=== PATIENT | female | born 1975 | race Hispanic/Latino ===

== ENCOUNTER 2018-11-19 20:33 | Emergency (ER) | payer MEDICARE ==
[~2018-11-19 20:33] MED LIST: ALPR2TAB7 PO; BUDE10.2 IH; DICL2100G TP; DIVA250T4 PO; DULO20 PO; GABA-529 PO; HYDR-3971 PO; ONDA4TAB4 PO; QUET300T2 PO; TIZA4TAB6 PO; ZOLP5TAB2 PO
[2018-11-19 21:35] LABS: BASOPHILS % (AUTO) 0.1 % (0.0-5.0); EOSINOPHILS % (AUTO) 0.2 % (0.0-8.0); HEMATOCRIT 40.2 % (36-48); LYMPHOCYTES % (AUTO) 7.5 % (21.0-51.0); MEAN CORPUSCULAR HEMOGLOBIN 30.3 pg (27.0-33.0); MEAN CORPUSCULAR HGB CONC 34.3 g/dL (32.0-36.0); MEAN CORPUSCULAR VOLUME 88.2 fL (79-99); MONOCYTES % (AUTO) 4.2 % (3.0-13.0); PLATELET COUNT (AUTO) 240 K/uL (130-400); RED BLOOD CELL COUNT(AUTO) 4.56 MIL/uL (4.00-5.50); RED CELL DISTRIBUTION WIDTH 13.8 % (11.0-15.5); WHITE BLOOD COUNT (AUTO) 5.3 K/uL (4.8-10.8)
[2018-11-19 21:49] LABS: CREATININE 0.9 mg/dL (0.5-1.5); POTASSIUM 3.2 mmol/L (3.5-5.1)
[2018-11-19 21:59] LABS: ALBUMIN 3.2 g/dL (3.5-5.0); BILIRUBIN,TOTAL 0.7 mg/dL (0.2-1.0); TOTAL PROTEIN, SERUM 7.1 g/dL (6.0-8.3)
[2018-11-19] MEDS ORDERED: ONDANSETRON HCL 4 MG/2 ML VIAL ONE (22:19)
[2018-11-19] MEDS ORDERED: SODIUM CHLORIDE 0.9% 1000ML 1,000 ML IV ONE (22:20)
[2018-11-20] MEDS ORDERED: ONDANSETRON HCL 4 MG/2 ML VIAL ONE ×2 (00:42→01:21)
[2018-11-20] MEDS ORDERED: KETOROLAC TROMETHAMINE 30MG/ML ONE (00:42)
[2018-11-20] MEDS ORDERED: DOXYCYCLINE HYCLATE 100 MG TABLET PO ONE (01:21)
[2018-11-20] MEDS ORDERED: ACETAMINOPHEN EXTRA STRENGTH 500 MG TABLET ONE (01:22)
[2018-11-20] MEDS ORDERED: POTASSIUM CHLORIDE 20 MEQ ERTAB PO ONE (02:19)
[2018-11-21 08:15] LABS: HEPATITIS A ANTIBODY IGM Negative (Negative); HEPATITIS B CORE IGM Negative (Negative); HEPATITIS Bs ANTIGEN SCREEN P Negative (Negative)
== END 2018-11-20 02:26 | disposition home or self-care (01) ==
LOC: EDH 20:33
DX: E86.0 Dehydration (principal); R11.10 Vomiting, unspecified; R19.7 Diarrhea, unspecified; R50.9 Fever, unspecified; I10 Essential (primary) hypertension; E11.9 Type 2 diabetes mellitus without complications; E78.5 Hyperlipidemia, unspecified; Z88.5 Allergy status to narcotic agent; Z88.6 Allergy status to analgesic agent
CPT/HCPCS: 36415; 71046; 76705; 80053; 80074; 83605; 83690; 85025; 86757; 87040 ×2; 87804 ×2; 93005; 96361; 96374; 96376; 99285; J1885; J2405 ×3; J7030

== ENCOUNTER 2020-10-22 15:20 | Emergency (ER) | payer OTHER, MEDICARE ==
[~2020-10-22] VITALS: Ht 157.5 cm; Wt 65.3 kg
[2020-10-22 15:29] VITALS: BP 102/57
[2020-10-22 16:06] LABS: BASOPHILS % (AUTO) 0.3 % (0.0-5.0); EOSINOPHILS % (AUTO) 0.1 % (0.0-8.0); HEMATOCRIT 31.8 % (36-48); LYMPHOCYTES % (AUTO) 3.4 % (21.0-51.0); MEAN CORPUSCULAR HEMOGLOBIN 28.4 pg (27.0-33.0); MEAN CORPUSCULAR HGB CONC 33.3 g/dL (32.0-36.0); MEAN CORPUSCULAR VOLUME 85.3 fL (79-99); MONOCYTES % (AUTO) 2.5 % (3.0-13.0); NEUTROPHILS % (AUTO) 93.5 % (40.0-77.0); PLATELET COUNT (AUTO) 301 K/uL (130-400); RED BLOOD CELL COUNT(AUTO) 3.73 MIL/uL (4.00-5.50); RED CELL DISTRIBUTION WIDTH 13.6 % (11.0-15.5); WHITE BLOOD COUNT (AUTO) 9.9 K/uL (4.8-10.8)
[2020-10-22 16:17] LABS: CARBON DIOXIDE 27 mmol/L (21-32); CHLORIDE 106 mmol/L (101-111); CREATININE 0.9 mg/dL (0.5-1.5); GLOMERULAR FILTR. RATE CALC 72 mL/min (>60); GLUCOSE,RANDOM 112 mg/dL (70-105); POTASSIUM 3.2 mmol/L (3.5-5.1); SODIUM SERUM 140 mmol/L (136-145); UREA NITROGEN, BLOOD 13 mg/dL (7-18)
[2020-10-22 16:21] LABS: ALANINE AMINOTRANSFERASE 107 U/L (12-78); ALBUMIN 3.4 g/dL (3.5-5.0); ALCOHOL, BLOOD < 3 mg/dL (0-10); ASPARTATE AMINOTRANSFERASE 148 U/L (10-37); BILIRUBIN,TOTAL 0.4 mg/dL (0.2-1.0); TOTAL PROTEIN, SERUM 6.9 g/dL (6.0-8.3)
[2020-10-22 16:23] LABS: ACETAMINOPHEN < 1 mcg/mL (10-30); SALICYLATE < 2.8 mg/dL (2.8-20.0)
[2020-10-22 17:41] VITALS: BP 114/68
== END 2020-10-22 17:50 | disposition home or self-care (01) ==
LOC: EDH 15:20
DX: F41.0 Panic disorder [episodic paroxysmal anxiety] (principal); E11.9 Type 2 diabetes mellitus without complications; E66.9 Obesity, unspecified; Z88.6 Allergy status to analgesic agent; Z88.5 Allergy status to narcotic agent; Z79.899 Other long term (current) drug therapy
CPT/HCPCS: 36415; 80053; 82948; 85025; 99282; G0481

== ENCOUNTER 2020-12-08 14:27 | Emergency (ER) | payer OTHER, MEDICARE ==
[~2020-12-08] VITALS: Ht 157.5 cm; Wt 67.6 kg
[2020-12-08 14:32] VITALS: BP 138/84
[2020-12-08] MEDS ORDERED: PROMETHAZINE HCL 25 MG/ML 1ML AMPULE IM ONE (15:00)
[2020-12-08] MEDS ORDERED: 0.9% NACL 500ML IV.SOLN 500 ML IV SCH (15:00)
[2020-12-08] MEDS ORDERED: CYCLOBENZAPRINE HCL 10 MG TABLET PO ONE (15:00)
== END 2020-12-08 15:08 | disposition left against medical advice (07) ==
LOC: EDH 14:27
DX: G43.909 Migraine, unspecified, not intractable, without status migrainosus (principal)
CPT/HCPCS: 99281

== ENCOUNTER 2024-07-28 14:40 | Emergency (ER) | payer MEDICARE ==
[~2024-07-28] VITALS: Ht 157.5 cm; Wt 67.1 kg
[~2024-07-28 14:40] MED LIST changes: +TIZA-330 PO; -TIZA4TAB6 PO
[2024-07-28] MEDS: leveTIRACEtam 500 MG/5 ML SD VIAL IV STA (15:47)
[2024-07-28 15:51] LABS: AMPHET/METH SCREEN,URINE POSITIVE (NEGATIVE); BARBITURATE SCREEN, URINE POSITIVE (NEGATIVE); BENZODIAZEPINES SCREEN,URINE NEGATIVE (NEGATIVE); CANNABINOID SCREEN,URINE NEGATIVE (NEGATIVE); COCAINE SCREEN,URINE POSITIVE (NEGATIVE); OPIATE SCREEN,URINE NEGATIVE (NEGATIVE); PHENCYCLIDINE SCREEN,URINE NEGATIVE (NEGATIVE)
--- NOTE | 2024-07-28 15:58 | ERN ---
General Chief Complaint: Seizure Stated Complaint: SEIZ Time Seen by MD: 14:43 Source: patient History of Present Illness Initial Comments PATIENT IS A 48-YEAR-OLD FEMALE COMING IN TO BE EVALUATED FOR BREAKTHROUGH SEIZURES. PATIENT STATES THAT SHE DOES HAVE A HISTORY OF SEIZURES HAS NOT TAKEN HER MEDICATION DUE TO NOT BEING ROUTE TO GET AN TIME. SHE STATES HE TAKES KEPPRA. Allergies: Coded Allergies: ketorolac (Verified Allergy, Unknown, 11/24/15) morphine (Unverified Allergy, Unknown, 11/24/15) Home Meds Reported Medications Budesonide/Formoterol Fumarate (Symbicort 160-4.5 Mcg Inhaler) 10.2 Gm Hfa.aer.ad, 10.2 GM IH BID PRN for SHORTNESS OF BREATH 11/24/15 Ondansetron HCl (Zofran) 4 Mg Tablet, 4 MG PO TID PRN for NAUSEA, TAB 11/24/15 Hydrocodone Bit/Acetaminophen ([place] 10 mg/325 mg Tab) 1 Tab Tab, 2 TAB PO q8hr PRN for PAIN LEVEL 6 TO 10, TAB 11/24/15 Hydrocodone Bit/Acetaminophen ([place] 10 mg/325 mg Tab) 1 Tab Tab, 1 TAB PO q8hr PRN for PAIN LEVEL 1 TO 5, TAB 11/24/15 Zolpidem Tartrate (Ambien) 5 Mg Tablet, 5 MG PO HS PRN for SLEEP, TAB 11/24/15 Zolpidem Tartrate (Ambien) 5 Mg Tablet, 25 MG PO HS, TAB 11/24/15 Diclofenac Sodium (Voltaren 1% Gel [2 gm/Dose]) 1 Appl/2 Gm Gel, 1 APPL TP QID PRN for PAIN LEVEL 1 TO 5, GEL 11/24/15 Quetiapine Fumarate (Seroquel) 300 Mg Tab, 900 MG PO HS, TAB 11/24/15 Divalproex Sodium (Depakote) 250 Mg Tablet.dr, 900 MG PO TID, TAB 11/24/15 Tizanidine HCl (Zanaflex) 4 Mg Tab, 4 MG PO BID, TAB 11/24/15 Gabapentin (Gabapentin) 100 Mg Capsule, 50 MG PO TID, CAP 11/24/15 Alprazolam (Alprazolam) 2 Mg Tablet, 2 MG PO QID, TAB 11/24/15 Duloxetine HCl (Cymbalta) 20 Mg Cap, 20 MG PO BID, CAP 11/24/15 Past Medical History Past Medical History: Anxiety, Seizure Medical History Other: PT DOES NOTRESPOND TO ALL QUESTIONS. Past Surgical History: Unknown Surgical History Other: UNABLE TO OBTAION INFORMATION, Family History Family History: Negative Social History Social History: Negative, Lives with family Female( History) History: Not Applicable ROS Dictation CONSTITUTIONAL: NO CHILLS, NO FEVER, NO WEAKNESS, NO DIAPHORESIS, NO MALAISE. HEAD/FACE: NO SIGNS OF TRAUMA. EENT: NO EYE PAIN, NO BLURRED VISION, NO TEARING, NO DOUBLE VISION, NO EAR PAIN, NO EAR DISCHARGE, NO NOSE PAIN, NO NASAL CONGESTION, NO THROAT PAIN, NO THROAT SWELLING, NO MOUTH PAIN. RESPIRATORY: NO COUGH, NO ORTHOPNEA, NO SOB, NO STRIDOR, NO WHEEZING. CARDIOVASCULAR: NO CHEST PAIN, NO EDEMA, NO PALPITATIONS, NO SYNCOPE. GASTROINTESTINAL/ABDOMINAL: NO ABDOMINAL PAIN, NO CONSTIPATION, NO DIARRHEA, NO NAUSEA, NO VOMITING. GENITOURINARY: NO ABNORMAL DISCHARGE, NO DYSURIA, NO FREQUENT URINATION, NO HEMATURIA. NO COMPLAINTS OF PAIN IN THE GENITALS. MUSCULOSKELETAL: NO BACK PAIN, NO GOUT, NO JOINT PAIN, NO JOINT SWELLING, NO MUSCLE PAIN, NO MUSCLE STIFFNESS, NO NECK PAIN. INTEGUMENTARY: NO CHANGE IN COLOR, NO CHANGE IN HAIR/NAILS, NO DRYNESS, NO LESION, NO LUMPS, NO RASH. NEUROLOGICAL/PSYCH: NO ANXIETY, NOT DEPRESSED, NO EMOTIONAL PROBLEM, NO HEADACHE, NO NUMBNESS, NO PRE-EXISTING DEFICIT, NO HISTORY OF SEIZURES, NO TREMORS, NO WEAKNESS. HEMATOLOGIC/LYMPHATIC: NOT ANEMIC, NO HISTORY OF BLOOD CLOTS, NO APPARENT BLEEDING, NO BRUISING, GLANDS NOT SWOLLEN. ALL SYSTEMS NEGATIVE, EXCEPT NOTED. Physical Exam Physical Exam Dictation VITAL SIGNS: REVIEWED. GENERAL APPEARANCE: ALERT, ORIENTED X3, NO ACUTE DISTRESS, OBESE. HEAD AND FACE: NON-TRAUMATIC. EYES: PERRL, PINK CONJUNCTIVAS, EYELID NO TRAUMA, ANTERIOR CHAMBER CLEAR. EARS: PINNAS INTACT AND NO SIGNS OF TRAUMA OR ERYTHEMA. EAR CANALS CLEAR AND NO DISCHARGE. TMS NO ERYTHEMA. NOSE: NO DISCHARGE, NO BLEEDING. OROPHARYNX: MOUTH NORMAL, TEETH NO CARIES, TONGUE PINK. PHARYNX CLEAR, NO ERYTHEMA. TONSILS NO EXUDATES, NO ABSCESSES NOTED. MUCOUS MEMBRANE MOIST. NECK: SUPPLE, NON-TENDER, NO THYROMEGALY, NO MASSES, NO JVD, NO BRUITS. BREAST: DEFERRED. CHEST: NO TENDERNESS, NO CREPITUS, NO PARADOXICAL MOVEMENT, NO RETRACTIONS. LUNGS: CLEAR, WELL-VENTILATED, SYMMETRIC, NO RALES, NO WHEEZING, NO RHONCHI, NO STRIDOR, GOOD BREATH SOUNDS BILATERALLY. HEART: REGULAR RATE, REGULAR RHYTHM, NO MURMUR, NO GALLOPS. VASCULAR: NO PERIPHERAL EDEMA. ABDOMEN: SOFT, POSITIVE BOWEL SOUNDS, NONDISTENDED, NO GUARDING, NONTENDER, NO REBOUND, NO MASSES NO HEPATOMEGALY, NO SPLENOMEGALY, NO HIDALGO'S SIGN, NO HERNIAS. RECTAL: DEFERRED. GENITAL: DEFERRED. NEUROLOGICAL: NORMAL SPEECH, GROSS MOTOR FUNCTION INTACT, GROSS SENSORY FUNCTION INTACT. MUSCULOSKELETAL: NECK NONTENDER, FULL RANGE OF MOTION, BACK NONTENDER, FULL RANGE OF MOTION. EXTREMITIES: NONTENDER, FULL RANGE OF MOTION. SKIN: COLOR PINK, DRY, NO TURGOR, NO RASH, NO LACERATIONS, NO ABRASIONS, NO CONTUSIONS. LYMPHATICS: DEFERRED. Results Laboratory and Microbiology Lab and Micro Result Laboratory Tests Test 07/28/24 15:30 07/28/24 16:50 Urine Opiates Screen NEGATIVE (NEGATIVE) Urine Barbiturates Screen POSITIVE (NEGATIVE) H Urine Phencyclidine Screen NEGATIVE (NEGATIVE) Urine Amphetamines Screen POSITIVE (NEGATIVE) H Urine Benzodiazepines Screen NEGATIVE (NEGATIVE) Urine Cocaine Screen POSITIVE (NEGATIVE) H Urine Marijuana (THC) Screen NEGATIVE (NEGATIVE) White Blood Count 5.4 K/uL (4.8-10.8) Red Blood Count 3.92 MIL/uL (4.00-5.50) L Hemoglobin 11.3 g/dL (12.0-16.0) L Hematocrit 34.8 % (36-48) L Mean Corpuscular Volume 88.8 fL (79-99) Mean Corpuscular Hemoglobin 28.8 pg (27.0-33.0) Mean Corpuscular Hemoglobin Concent 32.5 g/dL (32.0-36.0) Red Cell Distribution Width 12.8 % (11.0-15.5) Platelet Count 279 K/uL (130-400) Mean Platelet Volume 9.2 fL (7.5-10.5) Immature Granulocyte % (Auto) 0.2 % (0-1) Neutrophils (%) (Auto) 60.3 % (40.0-77.0) Lymphocytes (%) (Auto) 30.0 % (21.0-51.0) Monocytes (%) (Auto) 8.2 % (3.0-13.0) Eosinophils (%) (Auto) 0.9 % (0.0-8.0) Basophils (%) (Auto) 0.4 % (0.0-5.0) Neutrophils # (Auto) 3.2 K/uL (1.8-7.7) Lymphocytes # (Auto) 1.6 K/uL (1.0-4.8) Monocytes # (Auto) 0.4 K/uL (0.1-1.0) Eosinophils # (Auto) 0.05 K/uL (0.00-0.70) Basophils # (Auto) 0.02 K/uL (0.00-0.20) Absolute Immature Granulocyte (auto 0.01 K/uL (0-1) Nucleated Red Blood Cells 0.0 % (0.0-0.19) Sodium Level 140 mmol/L (136-145) Potassium Level 4.4 mmol/L (3.5-5.1) Chloride Level 105 mmol/L (101-111) Carbon Dioxide Level 30 mmol/L (21-32) Blood Urea Nitrogen 28 mg/dL (7-18) H Creatinine 0.9 mg/dL (0.5-1.0) Glomerular Filtration Rate Calc 78 mL/min (>90) Random Glucose 78 mg/dL (70-105) Total Calcium 8.6 mg/dL (8.5-10.1) Phenytoin (Dilantin) Level < 0.5 mcg/mL (10.0-20.0) L Valproic Acid (Depakene) Level 58 mcg/mL (50-100) Labs Reviewed?: Yes MDM MDM: DIFFERENTIAL DIAGNOSIS: HISTORY OF SEIZURES, SEIZURE-LIKE ACTIVITY, POLYSUBSTANCE ABUSE, NONCOMPLIANCE WITH MEDICATION PATIENT IS A 48-YEAR-OLD FEMALE COMING IN TO BE EVALUATED FOR SEIZURE-LIKE ACTIVITY. PER PATIENT SHE HAS NOT TAKEN HER KEPPRA AND DEPAKOTE FOR A COUPLE OF DAYS. PATIENT WAS COUNSELED AND ADVISED PROPER ADMINISTRATION OF HER ANTISEIZUR E MEDICATIONS TO HELP HER WITH LONG-TERM MANAGEMENT. PATIENT WILL BE DISCHARGED IN STABLE CONDITION. PATIENT STATES THAT HIS KEPPRA IS MISSING AND DOES NOT KNOW WHAT HAPPENED TO IT. ED Course Orders Procedure Category Date Status Time Cbc With Differential LAB 07/28/24 Complete 14:43 Phenytoin ([place]) In LAB 07/28/24 Complete House 14:43 Valproic Acid LAB 07/28/24 Complete 14:43 Basic Metabolic Panel LAB 07/28/24 Complete 14:43 Levetiracetam 500 PHA 07/28/24 Complete Mg/[address] (Keppra 5 14:43 Drug Screen Urine LAB 07/28/24 Complete 14:43 Diazepam 2 Mg Tab PHA 07/28/24 Complete (Valium 2 Mg Tab) 16:30 Current Medications Medications (Trade) Dose Ordered Sig/Heidi Route PRN Reason Start Time Stop Time Status Last Admin Dose Admin Diazepam (VALium 2 mg Tab) 2 mg ONCE ONCE PO 07/28/24 16:30 07/28/24 16:31 DC 07/28/24 16:26 Levetiracetam (kepPRA 500 MG/5 ML SD VIAL) 1,000 mg ONCE STAT IV 07/28/24 14:43 07/28/24 14:46 DC 07/28/24 15:47 Vital Signs Date Time Temp Pulse Resp B/P (MAP) Pulse Ox O2 Delivery O2 Flow Rate FiO2 07/28/24 16:33 97.9 72 18 142/78 97 Room Air* 0 21 07/28/24 15:10 76 18 146/80 100 Room Air* 0 21 07/28/24 14:43 97.9 71 18 116/76 99 Nonrebreathing Mask 12.0 DX & DISP Disposition: Discharge Departure Impression: Primary Impression: History of seizures Additional Impressions: Noncompliance, Anxiety, Polysubstance abuse Condition: Stable Scripts Levetiracetam (Keppra) 500 Mg Tablet 1 TAB PO BID for 10 Days, #20 TAB 0 Refills Prov: AYUSH ARTEAGA MD 07/28/24 Additional Instructions: FOLLOW-UP WITH PRIMARY CARE PROVIDER IN 1 TO 2 DAYS. TAKE MEDICATIONS DIRECTED HERE IN THE EMERGENCY ROOM. OKAY TO CONTINUE HOME MEDICATIONS UNLESS OTHERWISE DISCUSSED DURING YOUR VISIT IN THE EMERGENCY ROOM TODAY. RETURN TO YOUR NEAREST EMERGENCY ROOM IF SYMPTOMS WORSEN OR IF THERE IS NO IMPROVEMENT. CALL 911 IF YOU NEED IMMEDIATE ASSISTANCE. TAKE TYLENOL [id number] NEEDED AND IF NO CONTRAINDICATIONS ARE PRESENT. INCREASE ORAL HYDRATION. A WOUND CULTURE OR URINE CULTURE WAS ORDERED HERE IN THE EMERGENCY ROOM DEPARTMENT PLEASE FOLLOW-UP WITH PRIMARY CARE PROVIDER AND ADVISE THEM TO GET REPEAT PORTS FROM OUR FACILITY. IF YOU HAD ANY JOSÉ WRAP/SPLINTS THAT WERE APPLIED HERE, PLEASE DO NOT REMOVE THEM UNTIL YOU SEE YOUR PRIMARY CARE OR SPECIALTY. REFERRALS: Referrals: BISI TALBOT MD (PCP) Time of Disposition: 18:08 AYUSH ARTEAGA MD Jul 28, 2024 15:58
[2024-07-28] MEDS: diazePAM 2 MG TAB PO ONE (16:26)
[2024-07-28 16:33] VITALS: BP 142/78; PULSE 72; RESP 18; TEMP 97.9; O2SAT 97
[2024-07-28 17:05] LABS: BASOPHILS # (AUTO) 0.02 K/uL (0.00-0.20); BASOPHILS % (AUTO) 0.4 % (0.0-5.0); EOSINOPHILS # (AUTO) 0.05 K/uL (0.00-0.70); EOSINOPHILS % (AUTO) 0.9 % (0.0-8.0); HEMATOCRIT 34.8 % (36-48); IMMATURE GRANULOCYTE ABSOLUTE 0.01 K/uL (0-1); LYMPHOCYTES # (AUTO) 1.6 K/uL (1.0-4.8); MEAN CORPUSCULAR HEMOGLOBIN 28.8 pg (27.0-33.0); MEAN CORPUSCULAR HGB CONC 32.5 g/dL (32.0-36.0); MEAN CORPUSCULAR VOLUME 88.8 fL (79-99); MONOCYTES # (AUTO) 0.4 K/uL (0.1-1.0); MONOCYTES % (AUTO) 8.2 % (3.0-13.0); NEUTROPHILS # (AUTO) 3.2 K/uL (1.8-7.7); NEUTROPHILS % (AUTO) 60.3 % (40.0-77.0); PLATELET COUNT (AUTO) 279 K/uL (130-400); RED BLOOD CELL COUNT(AUTO) 3.92 MIL/uL (4.00-5.50); RED CELL DISTRIBUTION WIDTH 12.8 % (11.0-15.5); WHITE BLOOD COUNT (AUTO) 5.4 K/uL (4.8-10.8)
[2024-07-28 17:21] LABS: CARBON DIOXIDE 30 mmol/L (21-32); CHLORIDE 105 mmol/L (101-111); CREATININE 0.9 mg/dL (0.5-1.0); GLOMERULAR FILTR. RATE CALC 78 mL/min (>90); GLUCOSE,RANDOM 78 mg/dL (70-105); POTASSIUM 4.4 mmol/L (3.5-5.1); SODIUM SERUM 140 mmol/L (136-145); UREA NITROGEN, BLOOD 28 mg/dL (7-18); VALPROIC ACID 58 mcg/mL (50-100)
[2024-07-28 17:55] LABS: PHENYTOIN (DILANTIN) < 0.5 mcg/mL (10.0-20.0)
[2024-07-28] MEDS ORDERED: LEVE-43 PO (18:09)
== END 2024-07-28 18:18 | disposition home or self-care (01) ==
LOC: EDH 14:40
DX: F41.9 Anxiety disorder, unspecified (principal); F19.10 Other psychoactive substance abuse, uncomplicated; R56.9 Unspecified convulsions; Z79.51 Long term (current) use of inhaled steroids; Z79.899 Other long term (current) drug therapy; Z88.5 Allergy status to narcotic agent; Z91.199 Patient's noncompliance with other medical treatment and regimen due to unspecified reason
CPT/HCPCS: 99283; 96374; 80164; 80185; 80048; 80305; 85025; 36415; J1953

== ENCOUNTER 2024-12-25 11:14 | Emergency (ER) | payer MEDICARE ==
[~2024-12-25] VITALS: Ht 157.5 cm; Wt 72.6 kg
[~2024-12-25 11:14] MED LIST changes: +DIVA-159 PO; -DIVA250T4 PO; +LEVE-43 PO; +ZOLP-684 PO; -ZOLP5TAB2 PO
[2024-12-25] MEDS: LACTATED RINGERS 1000ML 1,000 ML IV ONE (11:36)
[2024-12-25 11:53] LABS: IMMATURE GRANULOCYTE ABSOLUTE 0.01 K/uL (0-1); NUCLEATED RED BLOOD CELLS 0.0 % (0.0-0.19); PLATELET COUNT (AUTO) 310 K/uL (130-400); RED BLOOD CELL COUNT(AUTO) 4.18 MIL/uL (4.00-5.50); RED CELL DISTRIBUTION WIDTH 12.7 % (11.0-15.5); WHITE BLOOD COUNT (AUTO) 7.3 K/uL (4.8-10.8)
[2024-12-25 12:03] LABS: CREATININE 0.7 mg/dL (0.5-1.0); GLOMERULAR FILTR. RATE CALC 105 mL/min (>90); GLUCOSE,RANDOM 72 mg/dL (70-105); SODIUM SERUM 140 mmol/L (136-145); UREA NITROGEN, BLOOD 15 mg/dL (7-18)
[2024-12-25 12:20] LABS: AMPHET/METH SCREEN,URINE POSITIVE (NEGATIVE); BARBITURATE SCREEN, URINE NEGATIVE (NEGATIVE); CANNABINOID SCREEN,URINE POSITIVE (NEGATIVE); COCAINE SCREEN,URINE POSITIVE (NEGATIVE)
[2024-12-25 12:24] LABS: VALPROIC ACID < 3 mcg/mL (50-100)
--- NOTE | 2024-12-25 13:15 | ERN ---
General Chief Complaint: Seizure Stated Complaint: SZ Time Seen by MD: 11:16 Source: patient History of Present Illness Initial Comments Patient is a 49-year-old female coming in due to seizure-like activity. Patient does has a history of seizures. Per EMS patient has not taken her medication for over a month due to financial restraints. Allergies: Coded Allergies: ketorolac (Verified Allergy, Unknown, 11/24/15) morphine (Unverified Allergy, Unknown, 11/24/15) Home Meds Active Scripts Levetiracetam (Keppra) 500 Mg Tablet, 1 TAB PO BID for 10 Days, #20 TAB 0 Refills Prov:AYUSH ARTEAGA MD 07/28/24 Reported Medications Budesonide/Formoterol Fumarate (Symbicort 160-4.5 Mcg Inhaler) 10.2 Gm Hfa.aer.ad, 10.2 GM IH BID PRN for SHORTNESS OF BREATH 11/24/15 Ondansetron HCl (Zofran) 4 Mg Tablet, 4 MG PO TID PRN for NAUSEA, TAB 11/24/15 Hydrocodone Bit/Acetaminophen ([place] 10 mg/325 mg Tab) 1 Tab Tab, 2 TAB PO q8hr PRN for PAIN LEVEL 6 TO 10, TAB 11/24/15 Hydrocodone Bit/Acetaminophen ([place] 10 mg/325 mg Tab) 1 Tab Tab, 1 TAB PO q8hr PRN for PAIN LEVEL 1 TO 5, TAB 11/24/15 Zolpidem Tartrate (Ambien) 5 Mg Tablet, 5 MG PO HS PRN for SLEEP, TAB 11/24/15 Zolpidem Tartrate (Ambien) 5 Mg Tablet, 25 MG PO HS, TAB 11/24/15 Diclofenac Sodium (Voltaren 1% Gel [2 gm/Dose]) 1 Appl/2 Gm Gel, 1 APPL TP QID PRN for PAIN LEVEL 1 TO 5, GEL 11/24/15 Quetiapine Fumarate (Seroquel) 300 Mg Tab, 900 MG PO HS, TAB 11/24/15 Divalproex Sodium (Depakote) 250 Mg Tablet.dr, 900 MG PO TID, TAB 11/24/15 Tizanidine HCl (Zanaflex) 4 Mg Tab, 4 MG PO BID, TAB 11/24/15 Gabapentin (Gabapentin) 100 Mg Capsule, 50 MG PO TID, CAP 11/24/15 Alprazolam (Alprazolam) 2 Mg Tablet, 2 MG PO QID, TAB 11/24/15 Duloxetine HCl (Cymbalta) 20 Mg Cap, 20 MG PO BID, CAP 11/24/15 Past Medical History Past Medical History: Anxiety, Bipolar, Seizure Medical History Other: PT DOES NOTRESPOND TO ALL QUESTIONS. Past Surgical History: Hysterectomy, Cholecystectomy Surgical History Other: LEFT ELBOW Family History Family History: Negative Social History Social History: Negative, Lives with family Female( History) History: Not Applicable ROS Dictation CONSTITUTIONAL: No chills, no fever, weakness, no diaphoresis, no malaise. HEAD/FACE: No signs of trauma. EENT: No eye pain, no blurred vision, no tearing, no double vision, no ear pain, no ear discharge, no nose pain, no nasal congestion, no throat pain, no throat swelling, no mouth pain. RESPIRATORY: No cough, no orthopnea, no SOB, no stridor, no wheezing. CARDIOVASCULAR: No chest pain, no edema, no palpitations, no syncope. GASTROINTESTINAL/ABDOMINAL: No abdominal pain, no constipation, no diarrhea, no nausea, no vomiting. GENITOURINARY: No abnormal discharge, no dysuria, no frequent urination, no hematuria. No complaints of pain in the genitals. MUSCULOSKELETAL: No back pain, no gout, no joint pain, no joint swelling, no muscle pain, no muscle stiffness, no neck pain. INTEGUMENTARY: No change in color, no change in hair/nails, no dryness, no lesion, no lumps, no rash. NEUROLOGICAL/PSYCH: No anxiety, not depressed, no emotional problem, no headache, no numbness, no pre-existing deficit, no history of seizures, no tremors, no weakness. HEMATOLOGIC/LYMPHATIC: Not anemic, no history of blood clots, no apparent bleeding, no bruising, glands not swollen. All Systems Negative, Except as Noted. Physical Exam Physical Exam Dictation VITAL SIGNS: Reviewed. GENERAL APPEARANCE: Alert, oriented x3, no acute distress, obese. HEAD AND FACE: Non-traumatic. EYES: PERRL, pink conjunctivas, eyelid no trauma, anterior chamber clear. EARS: Pinnas intact and no signs of trauma or erythema. Ear canals clear and no discharge. TMs no erythema. NOSE: No discharge, no bleeding. OROPHARYNX: Mouth normal, teeth no caries, tongue pink. Pharynx clear, no erythema. Tonsils no exudates, no abscesses noted. Mucous membrane moist. NECK: Supple, non-tender, no thyromegaly, no masses, no JVD, no bruits. BREAST: Deferred. CHEST: No tenderness, no crepitus, no paradoxical movement, no retractions. LUNGS: Clear, well-ventilated, symmetric, no rales, no wheezing, no rhonchi, no stridor, good breath sounds bilaterally. HEART: Regular rate, regular rhythm, no murmur, no gallops. VASCULAR: No peripheral edema. ABDOMEN: Soft, positive bowel sounds, nondistended, no guarding, nontender, no rebound, no masses no hepatomegaly, no splenomegaly, no Sheffield's sign, no hernias. RECTAL: Deferred. GENITAL: Deferred. NEUROLOGICAL: Normal speech, gross motor function intact, gross sensory function intact. MUSCULOSKELETAL: Neck nontender, full range of motion, back nontender, full range of motion. EXTREMITIES: Nontender, full range of motion. SKIN: Color pink, dry, no turgor, no rash, no lacerations, no abrasions, no contusions. LYMPHATICS: Deferred. Results Laboratory and Microbiology Lab and Micro Result Laboratory Tests Test 12/25/24 11:44 12/25/24 11:48 White Blood Count 7.3 K/uL (4.8-10.8) Red Blood Count 4.18 MIL/uL (4.00-5.50) Hemoglobin 11.9 g/dL (12.0-16.0) L Hematocrit 35.7 % (36-48) L Mean Corpuscular Volume 85.4 fL (79-99) Mean Corpuscular Hemoglobin 28.5 pg (27.0-33.0) Mean Corpuscular Hemoglobin Concent 33.3 g/dL (32.0-36.0) Red Cell Distribution Width 12.7 % (11.0-15.5) Platelet Count 310 K/uL (130-400) Mean Platelet Volume 8.9 fL (7.5-10.5) Immature Granulocyte % (Auto) 0.1 % (0-1) Neutrophils (%) (Auto) 72.1 % (40.0-77.0) Lymphocytes (%) (Auto) 20.0 % (21.0-51.0) L Monocytes (%) (Auto) 6.4 % (3.0-13.0) Eosinophils (%) (Auto) 1.1 % (0.0-8.0) Basophils (%) (Auto) 0.3 % (0.0-5.0) Neutrophils # (Auto) 5.3 K/uL (1.8-7.7) Lymphocytes # (Auto) 1.5 K/uL (1.0-4.8) Monocytes # (Auto) 0.5 K/uL (0.1-1.0) Eosinophils # (Auto) 0.08 K/uL (0.00-0.70) Basophils # (Auto) 0.02 K/uL (0.00-0.20) Absolute Immature Granulocyte (auto 0.01 K/uL (0-1) Nucleated Red Blood Cells 0.0 % (0.0-0.19) Sodium Level 140 mmol/L (136-145) Potassium Level 3.2 mmol/L (3.5-5.1) L Chloride Level 104 mmol/L (101-111) Carbon Dioxide Level 28 mmol/L (21-32) Blood Urea Nitrogen 15 mg/dL (7-18) Creatinine 0.7 mg/dL (0.5-1.0) Glomerular Filtration Rate Calc 105 mL/min (>90) Random Glucose 72 mg/dL (70-105) Total Calcium 8.8 mg/dL (8.5-10.1) Phenytoin (Dilantin) Level < 0.5 mcg/mL (10.0-20.0) L Valproic Acid (Depakene) Level < 3 mcg/mL (50-100) #L Urine Opiates Screen NEGATIVE (NEGATIVE) Urine Barbiturates Screen NEGATIVE (NEGATIVE) Urine Phencyclidine Screen NEGATIVE (NEGATIVE) Urine Amphetamines Screen POSITIVE (NEGATIVE) H Urine Benzodiazepines Screen POSITIVE (NEGATIVE) H Urine Cocaine Screen POSITIVE (NEGATIVE) H Urine Marijuana (THC) Screen POSITIVE (NEGATIVE) H Labs Reviewed?: Yes MDM MDM: Differential diagnosis: History of seizure, polysubstance abuse, noncompliance, Rationale: Tests considered and ordered secondary to shared decision making include: Previous outside records reviewed: Old ER visits. Risk of complication and/or morbidity or mortality of patient management: None Medications-Per medication reconciliation Need for hospitalization: Patient does not meet criteria for hospitalization. Need for emergency major/minor surgery: No Patient is a 49-year-old female with a history of seizures. Patient comes in due to seizure-like activity. Patient also stated that she has not taken her Keppra in over a month due to financial restraints. Laboratory workup positive for polysubstance. Patient was educated and advised to strain from using polysubstance as this would increase her chances of recurrent seizures. I also advised her to follow up with the PCP and continue taking her medication for seizures as indicated. Patient received a dose of Keppra in the ER. Throughout ER visit patient has been stable seizure free. Neurologically patient is intact cranial nerves 2-12 grossly intact. ED Course Orders Procedure Category Date Status Time Cbc With Differential LAB 12/25/24 Complete 11:18 Phenytoin ([place]) In LAB 12/25/24 Complete House 11:18 Valproic Acid LAB 12/25/24 Complete 11:18 Lactated Ringers PHA 12/25/24 In Process 1000ml (Lactated 11:30 Basic Metabolic Panel LAB 12/25/24 Complete 11:18 Drug Screen Urine LAB 12/25/24 Complete 11:18 Levetiracetam 500 PHA 12/25/24 Complete Mg/5 M[address] S[address] V (Keppra 5 11:30 Current Medications Medications (Trade) Dose Ordered Sig/Heidi Route PRN Reason Start Time Stop Time Status Last Admin Dose Admin Lactated Ringer's 1,000 ml @ 125 mls/hr ONCE ONCE IV 12/25/24 11:30 12/25/24 19:29 12/25/24 11:36 Levetiracetam (kepPRA 500 MG/5 ML SD VIAL) 1,000 mg ONCE ONCE IV 12/25/24 11:30 12/25/24 11:31 DC 12/25/24 11:36 Vital Signs Date Time Temp Pulse Resp B/P (MAP) Pulse Ox O2 Delivery O2 Flow Rate FiO2 12/25/24 11:26 99.0 88 18 140/90 97 Room Air 12/25/24 11:26 99.0 88 18 140/90 98 Room Air* 0 21 DX & DISP Disposition: Discharge Departure Impression: Primary Impression: History of seizures Additional Impressions: Noncompliance, Polysubstance abuse Condition: Stable Scripts Levetiracetam (Keppra) 500 Mg Tablet 1 TAB PO BID for 30 Days, #60 TAB 0 Refills Prov: AYUSH ARTEAGA MD 12/25/24 Additional Instructions: FOLLOW-UP WITH PRIMARY CARE PROVIDER IN 1 TO 2 DAYS. TAKE MEDICATIONS DIRECTED HERE IN THE EMERGENCY ROOM. OKAY TO CONTINUE HOME MEDICATIONS UNLESS OTHERWISE DISCUSSED DURING YOUR VISIT IN THE EMERGENCY ROOM TODAY. RETURN TO YOUR NEAREST EMERGENCY ROOM IF SYMPTOMS WORSEN OR IF THERE IS NO IMPROVEMENT. CALL 911 IF YOU NEED IMMEDIATE ASSISTANCE. TAKE TYLENOL [id number] NEEDED AND IF NO CONTRAINDICATIONS ARE PRESENT. INCREASE ORAL HYDRATION. A WOUND CULTURE OR URINE CULTURE WAS ORDERED HERE IN THE EMERGENCY ROOM DEPARTMENT PLEASE FOLLOW-UP WITH PRIMARY CARE PROVIDER AND ADVISE THEM TO GET REPORTS FROM OUR FACILITY. IF YOU HAD ANY JOSÉ WRAP/SPLINTS THAT WERE APPLIED HERE, PLEASE DO NOT REMOVE THEM UNTIL YOU SEE YOUR PRIMARY CARE OR SPECIALTY. Referrals: Referrals: ELENA HINKLE MD (PCP) Time of Disposition: 13:14 AYUSH ARTEAGA MD Dec 25, 2024 13:15
[2024-12-25 13:21] VITALS: BP 136/78; PULSE 86; RESP 17; TEMP 98.7; O2SAT 98
--- NOTE | 2024-12-25 13:35 | NUR ---
PT [id number], STABLE NO DISTRESS VITALS WNL, PT GIVEN INSTRUCTIONS FOR HOME AND ONE RX TO SUBMIT TO PHARMACY. PT IV REMOVED PT DRIVEN HOME BY MOTHER IN LAW.
== END 2024-12-25 13:36 | disposition home or self-care (01) ==
LOC: EDH 11:14
DX: R56.9 Unspecified convulsions (principal); F19.10 Other psychoactive substance abuse, uncomplicated; F41.9 Anxiety disorder, unspecified; F31.9 Bipolar disorder, unspecified; Z79.51 Long term (current) use of inhaled steroids; Z79.899 Other long term (current) drug therapy; Z88.5 Allergy status to narcotic agent; Z90.49 Acquired absence of other specified parts of digestive tract; Z90.710 Acquired absence of both cervix and uterus; Z91.199 Patient's noncompliance with other medical treatment and regimen due to unspecified reason
CPT/HCPCS: 99284; 96365; 80164; 80185; 80048; 80305; 85025; 36415; J1953